=== PATIENT | female | born 1960 | race Two or more races ===

== ENCOUNTER 2018-07-10 11:36 | Emergency (ER) | payer OTHER ==
[~2018-07-10] VITALS: Ht 160 cm; Wt 81.6 kg
[~2018-07-10 11:36] MED LIST: ADULT ASPIRIN81 MG; ASA81 MG PO; CATAPRES0.2 MG PO; FIORINAL CAPSUL1 CAP PO; HUMALOG MIX 75/10 ML SQ; HUMALOG100 U/ML SQ; JANUMET 50-1,01 EACH PO; JARDIANCE10 MG PO; LANTUS100 U/ML; LANTUS100 U/ML SQ; LIPITOR20 MG PO; MICARDIS80 MG PO; NABUMETONE500 MG PO; NABUMETONE750 MG PO; NEURONTIN300 MG PO; NORVASC10 MG PO; ORPH100T PO; OSEL75CA PO; PERCOCET 5/3251 TAB PO; PRADAXA75 MG PO; SPIRIVA RESPIMAT4 G1 IH; SYNTHROID112 MCG; SYNTHROID137 MCG PO; SYNTHROID150 MCG PO; TOPROL XL25 M1 PO; TOPROL XL25 MG PO; TUSNEL DIABETI118 ML PO; TUSSIONEX PENNKI5 ML PO; XANAX0.25 MG PO; [UNRECOGNIZED DRUG - OTHER]
== END 2018-07-10 20:51 | disposition home or self-care (01) ==
LOC: ER 11:36
DX: J06.9 Acute upper respiratory infection, unspecified (principal)

== ENCOUNTER 2019-07-07 12:13 | Outpatient (CLI) | payer OTHER | END 2019-07-07 13:41 | disposition home or self-care (01) | LOC: LAB 12:13 | DX: N20.0 Calculus of kidney (principal) ==

== ENCOUNTER → 2019-07-13 | Outpatient (CLI) | payer OTHER | END | disposition home or self-care (01) | LOC: TOM 07:30 | DX: R19.4 Change in bowel habit (principal); K56.50 Intestinal adhesions [bands], unspecified as to partial versus complete obstruction ==

== ENCOUNTER 2019-07-14 07:29 | Outpatient (CLI) | payer OTHER | END 2019-07-14 17:00 | disposition home or self-care (01) | LOC: TOM 07:29 | DX: R19.4 Change in bowel habit (principal); K56.50 Intestinal adhesions [bands], unspecified as to partial versus complete obstruction ==

== ENCOUNTER 2020-01-19 12:55 | Emergency (ER) | payer OTHER ==
[~2020-01-19] VITALS: Ht 162.6 cm; Wt 97.5 kg
== END 2020-01-19 21:09 | disposition home or self-care (01) ==
LOC: ER 12:55
DX: R07.89 Other chest pain (principal); J06.9 Acute upper respiratory infection, unspecified

== ENCOUNTER 2022-11-06 09:50 | Emergency (ER) | payer OTHER ==
[~2022-11-06] VITALS: Ht 160 cm; Wt 96.2 kg
== END 2022-11-06 14:53 | disposition home or self-care (01) ==
LOC: ER 09:50
DX: R06.02 Shortness of breath (principal); I51.7 Cardiomegaly; E11.9 Type 2 diabetes mellitus without complications; Z79.84 Long term (current) use of oral hypoglycemic drugs; I10 Essential (primary) hypertension; M79.7 Fibromyalgia

== ENCOUNTER 2022-12-24 13:58 | Emergency (ER) | payer OTHER ==
[~2022-12-24] VITALS: Ht 157.5 cm; Wt 86.2 kg
[2022-12-24] MEDS ORDERED: DIABETIC SILTU118 M1 PO (18:25)
[2022-12-24] MEDS ORDERED: FLONASE ALLERG9.9 ML NASAL (18:25)
[2022-12-24] MEDS ORDERED: CLARITIN10 M2 PO (18:25)
[2022-12-24] MEDS ORDERED: ZITHROMAX200 MG PO (18:44)
== END 2022-12-24 19:45 | disposition home or self-care (01) ==
LOC: ER 13:58
DX: U07.1 COVID-19 (principal); J44.9 Chronic obstructive pulmonary disease, unspecified; E11.9 Type 2 diabetes mellitus without complications; E03.9 Hypothyroidism, unspecified; I10 Essential (primary) hypertension

== ENCOUNTER 2024-01-21 18:13 | Emergency (ER) | payer OTHER ==
[~2024-01-21] VITALS: Ht 162.6 cm; Wt 86.2 kg
[~2024-01-21 18:13] MED LIST changes: +CLARITIN10 M2 PO; +DIABETIC SILTU118 M1 PO; +FLONASE ALLERG9.9 ML NASAL; +ZITHROMAX200 MG PO
[2024-01-21] MEDS ORDERED: CARVEDILOL ER40 MG (18:32)
[2024-01-21] MEDS ORDERED: LANTUS SOL100 UNIT/1 SQ (18:33)
[2024-01-21] MEDS ORDERED: HYDROCHLOROTHIA50 MG (18:33)
[2024-01-21] MEDS ORDERED: KETOROLAC TROMETHAMINE 60 MG VIAL IM STA (19:27)
[2024-01-21] MEDS ORDERED: ORPHENADRINE CITRATE 30 MG/ML AMPUL IM STA (19:27)
[2024-01-21] MEDS ORDERED: DEXAMETHASONE SODIUM PHOSPHATE 4 MG/ML VIAL IM STA (19:28)
[2024-01-21] MEDS ORDERED: OxyCODONE HCL/APAP UD (PERCOCET) PO STA (19:29)
== END 2024-01-21 20:14 | disposition home or self-care (01) ==
LOC: ER 18:13
DX: M54.16 Radiculopathy, lumbar region (principal); I10 Essential (primary) hypertension